=== PATIENT | female | born 1945 | race Caucasian/White ===

== ENCOUNTER 2017-07-11 11:53 | Emergency (ER) | payer MEDICARE, OTHER ==
--- NOTE | 2017-07-11 13:21 | CR ---
Chest 2V INDICATION: sob FINDINGS: Negative chest.
--- NOTE | 2017-07-11 13:41 | EDM.PDOC ---
ED HPI GENERAL MEDICAL PROBLEM - General Chief Complaint: Respiratory Problem Stated Complaint: TROUBLE BREATHING Time Seen by Provider: 07/11/17 12:10 Source of Information: Reports: Patient, Other ( friends) History Limitations: Reports: No Limitations, Other (pt is breathing rapidly and feels quite sob. ) - History of Present Illness INITIAL COMMENTS - FREE TEXT/NARRATIVE: Pt has been very weak and sob for the past 2 weeks. She has not had a fever but she has had sob. She has no pain with deep breathing. Onset: Gradual, Other ( several days. ) Duration: Day(s): Location: Reports: Chest, Generalized, Other ( Pt is feling very week. ) Associated Symptoms: Reports: Shortness of Breath - Related Data Allergies Allergy/AdvReac Type Severity Reaction Status Date / Time codeine Allergy Severe Chest Pain Verified 07/11/17 12:14 naproxen Allergy Edema Verified 07/11/17 12:14 Home Meds: Home Meds Telmisartan/Hydrochlorothiazid [Telmisartan-Hctz 40-12.5 mg Tb] 1 tab PO DAILY 07/11/17 [History] amLODIPine [Norvasc] 2.5 mg PO DAILY 07/11/17 [History] Past Medical History HEENT History: Reports: Impaired Vision, Sinusitis Cardiovascular History: Reports: Hypertension Respiratory History: Reports: Bronchitis, Recurrent, Sleep Apnea Gastrointestinal History: Reports: GERD, Hiatal Hernia, Jaundice [employer] History: Reports: Musculoskeletal History: Reports: Osteoporosis Endocrine/Metabolic History: Reports: Hypothyroidism - Past Surgical History GI Surgical History: Reports: Colonoscopy Musculoskeletal Surgical History: Reports: None Social & Family History - Tobacco Use Smoking Status *Q: Heavy Tobacco Smoker Years of Tobacco use: 30 Packs/Tins Daily: 0.5 Used Tobacco, but Quit: Yes Month Tobacco Last Used: 30 years ago - Caffeine Use Caffeine Use: Reports: None - Alcohol Use Days Per Week of Alcohol Use: 0 - Recreational Drug Use Recreational Drug Use: No ED ROS GENERAL - Review of Systems Review Of Systems: See Below Constitutional: Reports: Weakness, Fatigue HEENT: Reports: No Symptoms Respiratory: Reports: Shortness of Breath, Cough Cardiovascular: Reports: No Symptoms Endocrine: Reports: No Symptoms GI/Abdominal: Reports: No Symptoms : Reports: No Symptoms Musculoskeletal: Reports: No Symptoms Skin: Reports: No Symptoms ED EXAM, GENERAL - Physical Exam Exam: See Below Free Text/Narrative:: pt arrived with marked sob. She has had a cough. She has alot of joint pain and she admits to 2 tick bites in March. She has been fatiqued. Exam Limited By: No Limitations General Appearance: Alert, Anxious, Mild Distress, Other (pt is hyperventilating. ) Ears: Normal TMs Nose: Normal Inspection Throat/Mouth: Normal Inspection Head: Atraumatic Neck: Normal Inspection Respiratory/Chest: Other (pt is hypervwntilating. ) Cardiovascular: Regular Rate, Rhythm GI/Abdominal: Soft, Non-Tender (Female) Exam: Deferred Rectal (Female) Exam: Deferred Back Exam: Normal Inspection Extremities: Normal Inspection, Other (pt has alot of joint pain. ) Neurological: Alert, Oriented, Normal Cognition Psychiatric: Normal Affect Course - Vital Signs Last Recorded V/S: Last Vital Signs Temp 37.0 C 07/11/17 12:08 Pulse 88 07/11/17 12:08 Resp 22 H 07/11/17 12:08 BP 163/107 H 07/11/17 12:08 Pulse Ox 100 07/11/17 12:08 - Orders/Labs/Meds Orders: Active Orders 24 hr Category Date Time Status EKG Documentation Completion [RC] ASDIRECTED Care 07/11/17 12:36 Active EHRLICHIA CHAFFEENSIS, IGG&IGM [REF] Stat Lab 07/11/17 13:32 Received LYME AB SCREEN RFLX [REF] Stat Lab 07/11/17 13:32 Received EKG 12 Lead [EK] Routine Ther 07/11/17 12:36 Ordered Labs: Laboratory Tests 07/11/17 07/11/17 07/11/17 Range/Units 12:50 13:02 13:02 WBC 10.2 (4.5-11.0) K/uL RBC 5.23 (3.30-5.50) M/uL Hgb 13.9 (12.0-15.0) g/dL Hct 42.4 (36.0-48.0) % MCV 81 (80-98) fL MCH 27 (27-31) pg MCHC 33 (32-36) % Plt Count 323 (150-400) K/uL Neut % (Auto) 66 (36-66) % Lymph % (Auto) 22 L (24-44) % Carlton % (Auto) 9 H (2-6) % Eos % (Auto) 2 (2-4) % Baso % (Auto) 1 (0-1) % Puncture Site ABG pH (7.350-7.450) ABG pCO2 (35.0-42.0) mmHg ABG pO2 (75.0-100.0) mmHg ABG HCO3 (22.0-26.0) mmol/L ABG Total CO2 (21.0-25.0) mmol/L ABG O2 Saturation (95.0-98.0) % ABG O2 Content (15.0-23.0) %vol ABG Base Excess mm/L ABG Hemoglobin (12.0-16.0) g/dL ABG Oxyhemoglobin % ABG Carboxyhemoglobin (0.0-1.6) % ABG Methemoglobin % Cade Test O2 Delivery Device Sodium 136 L (140-148) mmol/L Potassium 3.7 (3.6-5.2) mmol/L Chloride 101 (100-108) mmol/L Carbon Dioxide 25 (21-32) mmol/L Anion Gap 13.7 (5.0-14.0) mmol/L BUN 23 H (7-18) mg/dL Creatinine 0.9 (0.6-1.0) mg/dL Est Cr Clr Drug Dosing 42.38 mL/min Estimated GFR (MDRD) > 60 (>60) Glucose 99 (74-106) mg/dL Calcium 10.0 (8.5-10.1) mg/dL Total Bilirubin 0.4 (0.2-1.0) mg/dL AST 24 (15-37) U/L ALT 25 (12-78) U/L Alkaline Phosphatase 106 (46-116) U/L C-Reactive Protein 2.26 H (0.0-0.3) mg/dL NT-Pro-B Natriuret Pep (5-125) pg/mL Total Protein 8.4 H (6.4-8.2) g/dL Albumin 3.7 (3.4-5.0) g/dL Globulin 4.7 H (2.3-3.5) g/dL Albumin/Globulin Ratio 0.8 L (1.2-2.2) TSH, Ultra Sensitive (0.358-3.740) uIU/mL Urine Color Yellow Urine Appearance Clear Urine pH 8.0 (4.5-8.0) Ur Specific Franklin 1.015 (1.008-1.030) Urine Protein Negative (NEGATIVE) mg/dL Urine Glucose (UA) Normal (NEGATIVE) mg/dL Urine Ketones Negative (NEGATIVE) mg/dL Urine Occult Blood Negative (NEGATIVE) Urine Nitrite Negative (NEGATIVE) Urine Bilirubin Negative (NEGATIVE) Urine Urobilinogen Normal (NORMAL) mg/dL Ur Leukocyte Esterase Negative (NEGATIVE) Urine RBC 0-5 (0-5) Urine WBC 0-5 (0-5) Ur Epithelial Cells Rare Amorphous Sediment Not seen Urine Bacteria Rare Urine Mucus Not seen 07/11/17 07/11/17 07/11/17 Range/Units 13:20 13:29 13:38 WBC (4.5-11.0) K/uL RBC (3.30-5.50) M/uL Hgb (12.0-15.0) g/dL Hct (36.0-48.0) % MCV (80-98) fL MCH (27-31) pg MCHC (32-36) % Plt Count (150-400) K/uL Neut % (Auto) (36-66) % Lymph % (Auto) (24-44) % Carlton % (Auto) (2-6) % Eos % (Auto) (2-4) % Baso % (Auto) (0-1) % Puncture Site Lt radial ABG pH 7.538 H (7.350-7.450) ABG pCO2 27.0 L (35.0-42.0) mmHg ABG pO2 91.8 (75.0-100.0) mmHg ABG HCO3 22.9 (22.0-26.0) mmol/L ABG Total CO2 19.7 L (21.0-25.0) mmol/L ABG O2 Saturation 97.9 (95.0-98.0) % ABG O2 Content 18.5 (15.0-23.0) %vol ABG Base Excess 1.7 mm/L ABG Hemoglobin 13.7 (12.0-16.0) g/dL ABG Oxyhemoglobin 96.2 % ABG Carboxyhemoglobin 0.9 (0.0-1.6) % ABG Methemoglobin 0.8 % Cade Test Passed O2 Delivery Device Room air Sodium (140-148) mmol/L Potassium (3.6-5.2) mmol/L Chloride (100-108) mmol/L Carbon Dioxide (21-32) mmol/L Anion Gap (5.0-14.0) mmol/L BUN (7-18) mg/dL Creatinine (0.6-1.0) mg/dL Est Cr Clr Drug Dosing mL/min Estimated GFR (MDRD) (>60) Glucose (74-106) mg/dL Calcium (8.5-10.1) mg/dL Total Bilirubin (0.2-1.0) mg/dL AST (15-37) U/L ALT (12-78) U/L Alkaline Phosphatase (46-116) U/L C-Reactive Protein (0.0-0.3) mg/dL NT-Pro-B Natriuret Pep 92 (5-125) pg/mL Total Protein (6.4-8.2) g/dL Albumin (3.4-5.0) g/dL Globulin (2.3-3.5) g/dL Albumin/Globulin Ratio (1.2-2.2) TSH, Ultra Sensitive 2.020 (0.358-3.740) uIU/mL Urine Color Urine Appearance Urine pH (4.5-8.0) Ur Specific Franklin (1.008-1.030) Urine Protein (NEGATIVE) mg/dL Urine Glucose (UA) (NEGATIVE) mg/dL Urine Ketones (NEGATIVE) mg/dL Urine Occult Blood (NEGATIVE) Urine Nitrite (NEGATIVE) Urine Bilirubin (NEGATIVE) Urine Urobilinogen (NORMAL) mg/dL Ur Leukocyte Esterase (NEGATIVE) Urine RBC (0-5) Urine WBC (0-5) Ur Epithelial Cells Amorphous Sediment Urine Bacteria Urine Mucus Meds: Medications Discontinued Medications Generic Name Dose Route Start Last Admin Trade Name Freq PRN Reason Stop Dose Admin Lorazepam 0.5 mg 07/11/17 14:18 Ativan PO 07/11/17 14:19 ONETIME ONE - Re-Assessments/Exams Free Text/Narrative Re-Assessment/Exam: 07/11/17 14:34 pt arrived with sob and fatique plus joint pain. She has been coughing but has not had sputum. 07/11/17 14:35 Her blood gases show hyperventilation. Her chest xray is normal. Her lab work otherwise was normal. She was ambulated and she maintained good o2 sats. 07/11/17 14:36 tick studies were ordred. Departure - Departure Time of Disposition: 14:37 Disposition: Home, Self-Care 01 Condition: Fair Clinical Impression: At high risk for tick borne illness, Hyperventilation, Anxiety - Discharge Information Referrals: PCP,None [Primary Care Provider] - Forms: ED Department Discharge Care Plan Goals: push fluids, doxycyline 100mg bid, naprosyn 500mg bid, will notify of the tick studies. - My Orders Last 24 Hours: My Active Orders 07/11/17 12:36 EKG Documentation Completion [RC] ASDIRECTED EKG 12 Lead [EK] Routine 07/11/17 13:32 EHRLICHIA CHAFFEENSIS, IGG&IGM [REF] Stat LYME AB SCREEN RFLX [REF] Stat - Assessment/Plan Last 24 Hours: My Active Orders 07/11/17 12:36 EKG Documentation Completion [RC] ASDIRECTED EKG 12 Lead [EK] Routine 07/11/17 13:32 EHRLICHIA CHAFFEENSIS, IGG&IGM [REF] Stat LYME AB SCREEN RFLX [REF] Stat
[2017-07-11] MEDS ORDERED: LORazepam 0.5 MG Tab PO ONE (14:18)
== END 2017-07-11 14:51 | disposition home or self-care (01) ==
LOC: JP.ED 11:53
DX: R06.4 Hyperventilation (principal); F41.9 Anxiety disorder, unspecified; I10 Essential (primary) hypertension; Z88.5 Allergy status to narcotic agent; Z88.8 Allergy status to other drugs, medicaments and biological substances; Z87.891 Personal history of nicotine dependence
CPT/HCPCS: 36415; 36600; 71020; 71020-26; 80053; 81001; 82803; 83880; 84443; 85025; 86140; 86618; 86666; 86666-59; 93005; 93010; 99283; 99285-25